=== PATIENT | female | born 1955 | race Caucasian/White ===

== ENCOUNTER 2017-07-12 12:31 | Emergency (ER) | payer OTHER, BC ==
[~2017-07-12] VITALS: Ht 175.3 cm; Wt 100.0 kg
[2017-07-12 12:35] VITALS: BP 143/74; PULSE 74; RESP 17; TEMP 98.3; O2SAT 97
[2017-07-12] MEDS ORDERED: ROSU5 PO (12:56)
[2017-07-12] MEDS ORDERED: ROSU10 PO (12:56)
[2017-07-12] MEDS ORDERED: ONCETAB7 PO (12:56)
[2017-07-12] MEDS ORDERED: ASPI81CH6 CHEW (12:56)
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
[2017-07-12] MEDS ORDERED: MOBI15TA PO (14:16)
[2017-07-12] MEDS ORDERED: ROBA750T PO (14:16)
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
[2017-07-12 14:26] VITALS: BP 132/78
== END 2017-07-12 14:25 | disposition home or self-care (01) ==
LOC: PHED 12:31
DX: S09.90XA Unspecified injury of head, initial encounter (principal); S16.1XXA Strain of muscle, fascia and tendon at neck level, initial encounter; S39.012A Strain of muscle, fascia and tendon of lower back, initial encounter; V89.2XXA Person injured in unspecified motor-vehicle accident, traffic, initial encounter; E78.00 Pure hypercholesterolemia, unspecified
CPT/HCPCS: 72040; 99283